=== PATIENT | female | born 1940 | race Caucasian/White ===

== ENCOUNTER 2019-06-25 09:29 | Inpatient (IN) ==
[2019-06-25] MEDS ORDERED: SOLU-MEDROL IV ONE (09:55)
--- NOTE | 2019-06-25 10:20 | Diag Imaging Result Doc PS360 ---
EXAM: CHEST-1 VIEW HISTORY: poss. Sepsis TECHNIQUE: Single view COMPARISON: 06/23/2019 FINDINGS: The lungs are well expanded. The heart is not enlarged. The vessels are not distended. There are no infiltrates. No effusion identified. IMPRESSION: No pneumonia Electronically signed by Lasha Patterson 06/25/2019 10:18 AM
[2019-06-25 10:24] LABS: BASO# 0.01 X1000 (0.0-0.2); BASO% 0.1 % (0.0-0.8); EOS# 0.15 X1000 (0.0-0.7); EOS% 1.5 % (0.0-10.0); HEMATOCRIT 45.1 % (37.0-47.0); HEMOGLOBIN 13.8 g/dL (12.0-16.0); IMM GRAN# 0.03 X1000 (0.0-0.04); IMM GRAN% 0.3 % (0.0-0.5); LYMPH# 1.52 X1000 (1.2-3.4); LYMPH% 14.9 % (20.5-51.1); MCHC 30.6 g/dL (33-37); MCV 94.7 FL (81-99); MONO# 0.92 X1000 (0.11-0.59); MPV 10.5 FL (7.4-10.4); NEUT% 74.2 % (42.2-75.2); PLT 164 X1000 (130-400); RBC 4.76 XMIL (4.2-5.4); RDW 14.1 % (11.5-14.5); WBC 10.23 X1000 (4.8-10.8)
[2019-06-25 10:28] LABS: INR 0.94; PROTIME 12.7 Seconds (11.0-16.0)
[2019-06-25] MEDS ORDERED: DUONEB (A & A) INH ONE ×2 (10:30→11:30)
[2019-06-25 10:48] LABS: ALB/GLOB RATIO 2.1; ALBUMIN 4.2 g/dL (3.5-5.0); CREATININE 1.1 mg/dL (0.5-0.9); POTASSIUM 5.1 mmol/L (3.5-5.1); TOTAL BILIRUBIN 0.77 mg/dL (0.20-1.00); TOTAL PROTEIN 6.2 g/dL (6.3-8.3)
--- NOTE | 2019-06-25 13:41 | PROVIDER DOCUMENTATION ---
This chart was entered by Amina Marquez Scribe, acting as scribe for Carlyle Harden MD. HPI-Respiratory General - General Chief Complaint: SEPSIS ALERT - D Stated Complaint: SOB COUGH COPD Time Seen by Provider: 06/25/19 09:39 Source: patient Allergies/Adverse Reactions: Patient Allergies Allergy/AdvReac Type Severity Reaction Status Date / Time No Known Allergies Allergy Verified 06/25/19 10:34 Home Medications: Home Medication List Medication Instructions Recorded Confirmed Last Taken Type Levothyroxine Sodium 88 mcg PO DAILY 08/20/17 06/25/19 08/20/17 08:00 History Sertraline HCl 50 mg PO DAILY 08/20/17 06/25/19 08/20/17 08:00 History Albuterol Sulfate Inhaler 2 puff INH Q6H PRN PRN #1 inhaler 06/23/19 Unknown Rx [Ventolin Hfa] - History of Present Illness-Resp Nature of Presenting Problem: 78yof presents to ED cc chronic cough w/o mucous production, Fever, SOB and wheezing for 1 wk that is not getting better. Pt reports she was seen in ED 06/23/19 for same symptoms, given breathing treatments, steroids and dx with COPD exacerbation but is no better today. Pt reports coughing lasts for 30 mins at a time and causes her SOB. Pt has hx of HTN, thyroid disease and COPD. Quality of Pain: reports: tightness Severity in ED: reports: moderate, severe Onset/Duration: reports: 1 week ago Timing: reports: still present, getting worse Cough Quality/Degree: reports: severe, dry cough Current Respiratory Medication Therapy: Initiated see nurses note Modifying Factors: worse with: coughing Associated Symptoms: reports: chest pain/soreness, cough, shortness of breath, short of breath, wheezing Similar Symptoms Previously?: Yes Recently seen or treated by another doctor?: Yes (seen in ED 06/23) Review of Systems - Adult - REVIEW OF SYSTEMS - ADULT Constitutional: reports: see HPI, fever. denies: chills, fatique Eyes: reports: no symptoms reported Ears, Nose, Mouth & Throat: reports: no symptoms reported Cardiovascular: reports: see HPI. denies: chest pain, palpitations Respiratory: reports: see HPI, chronic cough, shortness of breath, wheezing Gastrointestinal: reports: see HPI. denies: diarrhea, nausea, vomiting Genitourinary: reports: no symptoms reported Musculoskeletal: reports: no symptoms reported Integumentary: reports: no symptoms reported Neurological: reports: no symptoms reported Psychiatric: reports: no symptoms reported Endocrine: reports: no symptoms reported Hematologic/Lymphatic: reports: no symptoms reported Allergic/Immunologic: reports: no symptoms reported All Other Systems: Reviewed and Negative Past History - Adult - PAST MEDICAL HISTORY-ADULT Review of Records: reports: Old Records Reviewed, Nursing Assessment Review, Medications Reviewed, Social history reviewed & non-contributory. Major Childhood Illnesses: reports: denies history Cardiovascular: reports: denies history Respiratory: reports: denies history Gastrointestinal: reports: denies history Obstetrical/Gynecological: reports: denies history Genitourinary: reports: denies history Musculoskeletal: reports: denies history Neurological: reports: denies history Endocrine/Immune: reports: denies history Other Conditions: reports: denies history - IMMUNIZATION STATUS Childhood Immunizations: See Nurse Assessment Flu Vaccine: See Nurse Assessment - FAMILY HISTORY Family History: reviewed, not pertinent - SOCIAL HISTORY Smoking: denies Physical Exam-General - PHYSICAL EXAM-ADULT Initial Vital Signs Reviewed: Yes - CONSTITUTIONAL General Appearance: alert. negative: anxious, combative - EYES Eyes: PERRL/EOMI, pink conjunctivae. negative: photophobia - HEAD, EARS, NOSE, MOUTH & THROAT HENMT: normocephalic/atraumatic, moist mucous membranes. negative: angioedema - NECK Neck: normal inspection - RESPIRATORY Respiratory: normal breath sounds, wheezing (bilateral, quite a bit). negative: chest non-tender, lungs clear - CARDIOVASCULAR Cardiovascular: normal peripheral pulses, no edema, tachycardia. negative: regular rate, rhythm, bradycardia - GASTROINTESTINAL (ABDOMEN) Abdominal Exam: normal bowel sounds, non tender, soft. negative: rebound - MUSCULOSKELETAL Back Exam: normal inspection, no CVA tenderness, no vertebral tenderness Extremity: normal inspection. negative: deformity - SKIN Integumentary: normal color. negative: diaphoresis, jaundice - PSYCHIATRIC Psych/Mental Status: normal mood/affect, oriented x 3. negative: anxious, disheveled - HEART Score HEART Score: History: Slightly Suspicious HEART Score: ECG: Non-Specific Repolarization Disturbance/LBBB/PM HEART Score: Age: > or = 65 Years HEART Score: Risk Factors for Atherosclerotic Disease: 1 or 2 Risk Factors HEART Score: Troponin: < or = Normal Limit Total HEART Score:: 4 Progress - PLAN OF CARE/RESULTS Progress/Plan/Lab Results: Vital Signs - 8 hr 06/25/19 09:31 06/25/19 10:05 06/25/19 10:35 Temperature 98.5 F Pulse Rate 101 H 100 H 94 H Respiratory Rate 28 H 24 22 Blood Pressure 161/79 169/78 O2 Sat by Pulse Oximetry 96 95 96 06/25/19 11:50 06/25/19 13:01 06/25/19 13:18 Temperature Pulse Rate 71 87 79 Respiratory Rate 23 26 H 24 Blood Pressure 159/74 O2 Sat by Pulse Oximetry 90 L 88 L Laboratory Results - last 24 hr 06/25/19 06/25/19 06/25/19 10:15 10:15 10:15 WBC 10.23 RBC 4.76 Hgb 13.8 Hct 45.1 MCV 94.7 MCH 29.0 MCHC 30.6 L RDW Std Deviation 14.1 Plt Count 164 MPV 10.5 H Immature Gran % (Auto) 0.3 Neut % (Auto) 74.2 Lymph % (Auto) 14.9 L [place] % (Auto) 9.0 Eos % (Auto) 1.5 Baso % (Auto) 0.1 Immature Gran # (Auto) 0.03 Neut # (Auto) 7.60 H Lymph # (Auto) 1.52 [place] # (Auto) 0.92 H Eos # (Auto) 0.15 Baso # (Auto) 0.01 PT 12.7 INR 0.94 PTT (Actin FS) 25.0 Sodium 140 Potassium 5.1 D Chloride 103 Carbon Dioxide 25 Anion Gap 12 BUN 11 Creatinine 1.1 H Estimated GFR/1.73 m2 48 BUN/Creatinine Ratio 10 Glucose 85 Calculated Osmolality 278 Calcium 9.0 Total Bilirubin 0.77 AST 18 ALT 21 Alkaline Phosphatase 93 Creatine Kinase 64 Troponin T Total Protein 6.2 L Albumin 4.2 Globulin 2.0 Albumin/Globulin Ratio 2.1 Plasma Lactate 06/25/19 06/25/19 10:15 10:15 WBC RBC Hgb Hct MCV MCH MCHC RDW Std Deviation Plt Count MPV Immature Gran % (Auto) Neut % (Auto) Lymph % (Auto) [place] % (Auto) Eos % (Auto) Baso % (Auto) Immature Gran # (Auto) Neut # (Auto) Lymph # (Auto) [place] # (Auto) Eos # (Auto) Baso # (Auto) PT INR PTT (Actin FS) Sodium Potassium Chloride Carbon Dioxide Anion Gap BUN Creatinine Estimated GFR/1.73 m2 BUN/Creatinine Ratio Glucose Calculated Osmolality Calcium Total Bilirubin AST ALT Alkaline Phosphatase Creatine Kinase Troponin T < 0.010 Total Protein Albumin Globulin Albumin/Globulin Ratio Plasma Lactate 2.2 Orders Category Date Time Status Cardiac Monitoring DIRECTED Care 06/25/19 09:40 Completed Notify MD of + Sepsis Screen NOW Care 06/25/19 09:40 Completed Notify Physician As Ordered Care 06/25/19 09:40 Completed CHEST-1 VIEW [RAD] Stat Exams 06/25/19 09:40 Completed BLOOD CULTURE [BLDCUL] Stat Lab 06/25/19 11:02 Results CBC WITH DIFF [HEME] Stat Lab 06/25/19 10:15 Completed CK PROFILE [SP CHEM] Stat Lab 06/25/19 10:15 Completed COMPREHENSIVE METABOLIC PANEL [CHEM] Stat Lab 06/25/19 10:15 Completed LACTATE, PLASMA [CHEM] Q3H Lab 06/25/19 10:15 Completed PROTIME WITH INR [COAG] Stat Lab 06/25/19 10:15 Completed PTT [COAG] Stat Lab 06/25/19 10:15 Completed TROPONIN T Stat Lab 06/25/19 10:15 Completed Albuterol 2.5MG/Ipratrop 0.5MG [Duoneb (A & A)] Med 06/25/19 10:30 Discontinued 3 ml INH NOW ONE Albuterol 2.5MG/Ipratrop 0.5MG [Duoneb (A & A)] Med 06/25/19 11:30 Discontinued 3 ml INH NOW ONE Methylprednisolone Sod Succ [Solu-Medrol] Med 06/25/19 09:55 Discontinued 125 mg IV NOW ONE Aerosol Treatments Routine Oth 06/25/19 10:30 Completed Aerosol Treatments Routine Oth 06/25/19 11:30 Completed Aerosol Treatments Stat Oth 06/25/19 10:30 Completed Aerosol Treatments Stat Oth 06/25/19 11:30 Completed Oxygen Device Stat Oth 06/25/19 09:40 Completed Pt sats dropped to 88% on RA in exam room. Result Diagrams: 06/25/19 10:15 06/25/19 10:15 - EKG 1 Time of EKG reading by physician:: 09:40 EKG Read and Signed by:: Carlyle Harden EKG Interpretation (*Must complete 3 of following elements*): Abnormal (possible left atrial enlargement) Rate: 85 Rhythm: NSR QRS: normal ST Wave: non-specific ST changes - XRAY 1 XRAY: Bilateral XRAY Study: Chest Impression: See EMR Report (IMPRESSION: No pneumonia Electronically signed by Lasha Patterson 06/25/2019 10:18 AM) - CONSULTS/PCP/HOSPITALIST Notification #1 *Consult/PCP/Hospitalist*: April VITICULTURIST for Hospitalist Time Discussed: 13:39 Consult Disposition: Will see in ED, Admit Departure - Departure Date of Disposition Decision: 06/25/19 Time of Disposition Decision: 13:39 DIAGNOSIS: COPD with exacerbation Disposition: ADMITTED INPATIENT 09 Certified Medical Emergency: Emergent Condition: Fair Additional Instructions: ED Follow Up Instructions: You have been treated by a care provider in the Emergency Department. These instructions are being provided to you so you can have an understanding of how to care for yourself upon discharge. Upon discharge from the Emergency Department, you are responsible for making arrangements for follow-up care by a physician of your choice. Take all prescribed medications as directed. Return to the Emergency Department immediately for any new or worsening symptoms. You may call the Physician Referral phone number at [phone] to obtain a list of Physicians who are taking new patients. Referrals and Follow-Ups: None,PCP [Primary Care Provider] - - Critical Care Note This patient required my direct & personal management of CC.: No Attestation - Physician/ KARELY Attestation Patient care was provided by Advanced Practice Provider:: No The physician spent face to face time with patient:: Yes Advanced Practice Provider documentation review:: Supervising physician onsite and consulted in the evaluation and care of this patient. The physician did have a face to face encounter with the patient. This chart was documented by the indicated scribe, (Amina Marquez Scribe) and accurately reflects the services I performed and decisions made by me, Carlyle Harden MD, as attested by the provider's signature.
[2019-06-25] MEDS ORDERED: TYLENOL PO PRN (14:34)
[2019-06-25] MEDS ORDERED: ZOFRAN IV PRN (14:34)
[2019-06-25] MEDS ORDERED: DUONEB (A & A) INH PRN (14:36)
--- NOTE | 2019-06-25 15:14 | HISTORY AND PHYSICAL ---
CHIEF COMPLAINT: Shortness of breath. HISTORY OF PRESENT ILLNESS: This is a 78-year-old female with a history of COPD, hypertension, hypothyroid, who presents to the emergency room complaining of shortness of breath, productive cough times about 10 days. She was first treated at an outlying facility about 2 weeks ago. She was given a Z-Oscar and steroids with no improvement in symptoms. In fact, symptoms increased during the day on the . Therefore, she presented to [facility]. She was evaluated, diagnosed with a COPD exacerbation, given Advair inhaler, Medrol Dosepak, Tessalon Perles, and discharged home. She returns today with increasing symptoms once again, having O2 saturations that dropped to 88% on room air, recovering to 94 to 95 percent on nasal cannula despite being given IV steroids and DuoNeb treatments. Therefore, she is being admitted for further evaluation and treatment. PAST MEDICAL HISTORY: 1. Chronic obstructive pulmonary disease. 2. Hypertension. 3. Hypothyroid. PAST SURGICAL HISTORY: 1. Hysterectomy. 2. Thyroidectomy. SOCIAL HISTORY: She denies any alcohol, tobacco, or illicit drug use. ALLERGIES: No known drug allergies. HOME MEDICATIONS: Levothyroxine. REVIEW OF SYSTEMS: Discussed with patient with pertinent positives stated in the HPI. She denied any syncope or dizziness, any nausea, vomiting, diarrhea, constipation, black or bloody vomitus or stools, any chest pain, palpitations. FAMILY HISTORY: Positive for hypertension and COPD in first-degree relatives. PHYSICAL EXAMINATION: VITAL SIGNS: Blood pressure is 150/79 with a heart rate of 76, respirations are 20 to 24, temperature is 98.5 degrees with O2 saturations 94 to 96 percent on 2 L nasal cannula. EYES: Pupils equal, round, react to light. EOMS are intact. Sclerae anicteric. HENT: Head is normocephalic, atraumatic. Mucous membranes are moist. NECK: Supple with trachea midline. CARDIOVASCULAR: Regular rate and rhythm. S1 and S2 appreciated. She has no lower extremity edema. No murmurs. Calves are nontender with peripheral pulses palpable x4 extremities. PULMONARY: Breath sounds are diminished in the bases. She does have rhonchi that do not clear, and inspiratory/expiratory wheezes scattered throughout. She has slight increased work of breathing. Chest rises and falls symmetrically with respiration. Chest wall is nontender to palpation. GASTROINTESTINAL: Abdomen is soft, nontender, nondistended with bowel sounds in all 4 quadrants. NEUROLOGIC: She is alert and oriented x3. SKIN: Warm and dry. LABS: WBC is 10.2 with hemoglobin 13.8, hematocrit 45.1, platelets 164. Sodium 140, potassium 5.1. BUN 11, creatinine 1.1 with a glucose of 85. Blood cultures are pending. X-RAYS: Chest x-ray revealed no pneumonia. Lungs are well expanded. Heart is not enlarged. Vessels are not distended. There are no infiltrates, no effusions. ASSESSMENT: This is a 78-year-old female, who is sitting up in the bed in mild respiratory distress. 1. Chronic obstructive pulmonary disease, acute exacerbation. 2. Acute hypoxemic respiratory failure. 3. Hypertension. 4. Hypothyroid. 5. Deep vein thrombosis prophylaxis. 6. Gastrointestinal prophylaxis. PLAN: The patient will be admitted to the hospital. She will be placed on telemetry continuous supplemental oxygen, DuoNebs q. 4 hours with q. 2 hours p.r.n. steroids to taper. incentive spirometer. identify her home medications and continue these as appropriate Blood cultures have been obtained. Rocephin and azithromycin and any further antibiotics will be culture driven. CBC and CMP in the morning. For DVT prophylaxis, Lovenox. For GI prophylaxis, Prilosec. Plan was discussed with Dr Berkowitz. Further treatments pending hospital course. Dictated by VICKI Dixon for Butch Mims MD cc: VICKI Dixon MD [facility]
[2019-06-25] MEDS: ROCEPHIN 1 GM in NS 50 ML IV SCH (15:17)
--- NOTE | 2019-06-25 15:28 | HISTORY AND PHYSICAL ---
ADDENDUM: Patient seen and examined by me [id number]. All the laboratory, vital signs and images were reviewed. The patient presented to the emergency department with shortness of breath, and she has been having shortness of breath for 2 weeks now. On 06/11/2019, she went to an urgent care and she received some steroids, antibiotics and breathing treatment at home, but she did not get better. Actually, she is getting worse and this is why she came into the emergency department. She was told a couple weeks ago also that she has COPD. She is not a smoker, but she has been around people smoking, including her . She is still coughing, but no phlegm is coming up. She is still wheezing and she is not able to sleep. Chest x-ray did not show any infiltrates, but it does look like having some changes suggestive of COPD with horizontal cessation of the ribs. Laboratory stable. Vital signs showed hypoxia upon admission and elevated blood pressure. She had a partial thyroidectomy done before, but no cancer was found. She is on levothyroxine which we will continue. We will continue with home medications. We have placed this patient on steroids, breathing treatment, oxygen supplementation and antibiotics. We will transfer this patient to the medical floor and monitor the patient closely. Hopefully before discharging this patient, we can get a silk screen printer to see her as an outpatient. I agree with the rest of the nurse practitioner's assessment and plan. cc: Butch Mims MD
[2019-06-25] MEDS: DUONEB (A & A) INH SCH ×3 (15:41→23:38)
[2019-06-25] MEDS: ZITHROMAX PO SCH (16:07)
[2019-06-25] MEDS: NS 1,000 ML IV SCH (16:08)
[2019-06-25] MEDS: TESSALON PO PRN (16:33)
[2019-06-25] MEDS: SOLU-MEDROL IV SCH (20:11)
[2019-06-26] MEDS: DUONEB (A & A) INH SCH ×6 (03:55→23:32)
[2019-06-26] MEDS: SOLU-MEDROL IV SCH ×3 (05:20→20:17)
[2019-06-26] MEDS: NS 1,000 ML IV SCH (05:20)
[2019-06-26 06:01] LABS: HEMATOCRIT 40.3 % (37.0-47.0); HEMOGLOBIN 12.5 g/dL (12.0-16.0); IMM GRAN# 0.02 X1000 (0.0-0.04); IMM GRAN% 0.3 % (0.0-0.5); LYMPH# 0.53 X1000 (1.2-3.4); LYMPH% 8.7 % (20.5-51.1); MCH 29.2 PG (27-31); MCV 94.2 FL (81-99); MONO# 0.26 X1000 (0.11-0.59); MONO% 4.3 % (1.7-9.3); MPV 11.1 FL (7.4-10.4); NEUT# 5.29 X1000 (1.4-6.5); NEUT% 86.7 % (42.2-75.2); PLT 153 X1000 (130-400); RBC 4.28 XMIL (4.2-5.4); RDW 13.7 % (11.5-14.5)
[2019-06-26 06:21] LABS: AGAP 12; ALB/GLOB RATIO 1.5; ALBUMIN 3.4 g/dL (3.5-5.0); ALKALINE PHOSPHATASE 80 U/L (32-104); BUN 19 mg/dL (8-22); CALCIUM 8.4 mg/dL (8.8-10.2); CHLORIDE 105 mmol/L (98-107); COSMO 280; CREATININE 0.9 mg/dL (0.5-0.9); ESTIMATED GFR > 60; GLUCOSE 169 mg/dL (70-104); GOT 14 U/L (10-30); GPT 19 U/L (10-36); POTASSIUM 4.2 mmol/L (3.5-5.1); SODIUM 137 mmol/L (136-145); TCO2 20 mmol/L (25-35); TOTAL BILIRUBIN 0.34 mg/dL (0.20-1.00); TOTAL PROTEIN 5.7 g/dL (6.3-8.3)
[2019-06-26] MEDS: SYNTHROID PO SCH (06:29)
[2019-06-26] MEDS: PRILOSEC PO SCH (06:29)
--- NOTE | 2019-06-26 08:01 | EKG Report ---
Test Performed on : 06/25/2019 09:40:52 AM Test Reason : ED. No order in [place] Blood Pressure : / mmHG Vent. Rate : 085 BPM Atrial Rate : 085 BPM P-R Int : 158 ms QRS Dur : 072 ms QT Int : 374 ms P-R-T Axes : 071 053 064 degrees QTc Int : 445 ms Normal sinus rhythm. Possible Left atrial enlargement Nonspecific ST abnormality Abnormal ECG When compared with ECG of 23-JUN-2019 14:22, (Unconfirmed) No significant change was found Unconfirmed Result
[2019-06-26 08:09] LABS: LARGE PLATELETS OCCASIONAL; LYMPHS 9 % (21-51); MONO 2 % (1-9); SEGS 87 % (42-75)
[2019-06-26] MEDS: LOVENOX SUBQ SCH (09:06)
[2019-06-26] MEDS: ZITHROMAX PO SCH (09:06)
[2019-06-26] MEDS: ZOLOFT PO SCH (09:06)
[2019-06-26] MEDS: TESSALON PO PRN ×2 (10:37→20:15)
--- NOTE | 2019-06-26 13:53 | PROGRESS NOTE ---
DATE: 06/26/2019 SUBJECTIVE: The patient seems to be doing better today. She is still coughing a lot, but her wheezing is better and her breathing is better. I will decrease the dose of the steroids from 60 q eight hours to 40 q eight hours and continue to monitor. Her kidney function is better and she is tolerating p.o., so I will also stop the fluids. I will continue with the antibiotics and breathing treatment as well. OBJECTIVE: Vital Signs: Temperature 98.1 degrees, pulse 106, respiratory rate 20, blood pressure 148/64, oxygen saturation 98 on 2 L of nasal cannula. HEENT: Head normocephalic, no trauma. PERRLA. Neck: Supple. No JVD. No masses. Central trachea. Chest: Decreased breath sounds globally with prolonged expiratory phase and end-expiratory wheezing, mostly at the bases. Abdomen: Soft, nontender, nondistended. No hepatosplenomegaly. Extremities: No edema, no clubbing, no cyanosis. Neurological: The patient is alert and oriented x3. No focal deficits. LABORATORY: WBC 6.1, hemoglobin 12.5, hematocrit 40.3, platelets 153,000. Sodium 137, potassium 4.2, chloride 105, bicarbonate 20, BUN 19, creatinine 0.9, glucose 164, calcium 8.4, albumin 3.4. ASSESSMENT AND PLAN: 1. Acute chronic obstructive pulmonary disease exacerbation. Continue breathing treatment and steroids, which I will decrease the dose and oxygen supplementation. We will continue with same management for now. 2. Acute hypoxemic respiratory failure likely secondary to #1. 3. Likely, also this patient has bronchitis. Continue with antibiotics. 4. Bronchitis, continue with ceftriaxone and azithromycin. 5. Hypertension, stable. Continue with same treatment. 6. Hypothyroidism. Continue with Synthroid. 7. Deep vein thrombosis prophylaxis with Lovenox. 8. Gastrointestinal prophylaxis with omeprazole. DISPOSITION: The patient seems to be doing better. I do believe this patient can be discharged in the next 48 to 72 hours. cc: Butch Mims MD
[2019-06-26] MEDS: ROCEPHIN 1 GM in NS 50 ML IV SCH (14:47)
[2019-06-27] MEDS: DUONEB (A & A) INH SCH ×6 (03:41→23:29)
[2019-06-27 05:56] LABS: AGAP 11; BUN 18 mg/dL (8-22); CALCIUM 8.4 mg/dL (8.8-10.2); CHLORIDE 106 mmol/L (98-107); COSMO 281; CREATININE 0.8 mg/dL (0.5-0.9); ESTIMATED GFR > 60; GLUCOSE 152 mg/dL (70-104); POTASSIUM 4.1 mmol/L (3.5-5.1); SODIUM 138 mmol/L (136-145); TCO2 21 mmol/L (25-35)
[2019-06-27] MEDS: SYNTHROID PO SCH (06:08)
[2019-06-27] MEDS: PRILOSEC PO SCH (06:08)
[2019-06-27] MEDS: SOLU-MEDROL IV SCH ×3 (06:12→21:02)
[2019-06-27] MEDS: ZOLOFT PO SCH (09:02)
[2019-06-27] MEDS: LOVENOX SUBQ SCH (09:02)
[2019-06-27] MEDS: ZITHROMAX PO SCH (09:02)
[2019-06-27] MEDS ORDERED: NORVASC PO ONE (09:52)
--- NOTE | 2019-06-27 11:28 | PROGRESS NOTE ---
DATE: 06/27/2019 SUBJECTIVE: This patient seems to be doing better. She is still coughing a lot and wheezing. She is still short of breath. I will continue with the same dose of the steroids today. Kidney function resolved. I stopped the fluids already. I will continue with antibiotics and breathing treatment. OBJECTIVE: Vital Signs: Temperature 98.5 degrees, pulse 83, respiratory rate 20, blood pressure 177/74, oxygen saturation 99 on 2 L of nasal cannula. HEENT: Head normocephalic, no trauma. PERRLA. Neck: Supple. No JVD. No masses. Central trachea. Chest: Decreased breath sounds globally with prolonged expiratory phase and expiratory wheezing, mostly at the bases. Abdomen: Soft, nontender, nondistended. No hepatosplenomegaly. Extremities: No edema, no clubbing, no cyanosis. Neurological: The patient is alert, she is oriented x3. No focal deficits. LABORATORY DATA: Sodium 138, potassium 4.1, chloride 106, bicarbonate 21, BUN 18, creatinine 0.8, glucose 152, calcium 8.4. ASSESSMENT AND PLAN: 1. Acute chronic obstructive pulmonary disease exacerbation. Continue breathing treatments, steroids, antibiotics and oxygen supplementation. 2. Acute hypoxemic respiratory failure, likely secondary to #1. 3. Bronchitis. Continue with antibiotics. 4. Hypertension, stable. Continue with same treatment. 5. Hypothyroidism. Continue with Synthroid. 6. Deep vein thrombosis prophylaxis with Lovenox. 7. Gastrointestinal prophylaxis with omeprazole. 8. Disposition. The patient seems to be doing better. I do believe this patient can be discharged in the next 24 to 48 hours. We will continue with the same management. I will continue with the same dose of steroids. cc: Butch Mims MD
[2019-06-27] MEDS: ROCEPHIN 1 GM in NS 50 ML IV SCH (14:17)
[2019-06-27] MEDS: TESSALON PO PRN (14:19)
[2019-06-28] MEDS: DUONEB (A & A) INH SCH ×6 (03:26→23:21)
[2019-06-28] MEDS: SOLU-MEDROL IV SCH ×3 (05:54→20:50)
[2019-06-28] MEDS: PRILOSEC PO SCH (06:03)
[2019-06-28] MEDS: SYNTHROID PO SCH (06:03)
[2019-06-28] MEDS: ZOLOFT PO SCH (08:43)
[2019-06-28] MEDS: LOVENOX SUBQ SCH (08:44)
[2019-06-28] MEDS: ZITHROMAX PO SCH (08:44)
--- NOTE | 2019-06-28 11:02 | PROGRESS NOTE ---
DATE: 06/28/2019 SUBJECTIVE: The patient seems to be feeling better, but she is still wheezing and coughing. I will add Symbicort to her medications. I will continue with steroids. Kidney function resolved. I stopped the fluids already. Continue with antibiotics, breathing treatment, oxygen supplementation. OBJECTIVE: Vital Signs: Temperature 98.1 degrees, pulse 78, respiratory rate 20, blood pressure 172/67, oxygen saturation 98 on 2 L of nasal cannula. HEENT: Head normocephalic, no trauma. PERRLA. Neck: Supple. No JVD. No masses. Central trachea. Chest: Decreased breath sounds globally with prolonged expiratory phase and expiratory wheezing mostly at the bases. Abdomen: Soft, nontender, nondistended. No hepatosplenomegaly. Extremities: No edema, no clubbing, no cyanosis. Neurological: The patient is alert she is oriented x3. No focal deficits. LABORATORY: No lab work done today, laboratory from yesterday stable. ASSESSMENT AND PLAN: 1. Acute chronic obstructive pulmonary disease exacerbation. Continue breathing treatments, steroids, antibiotics, oxygen supplementation, I will add Symbicort to her medications. 2. Acute hypoxemic respiratory failure likely secondary to #1. 3. Bronchitis continue with antibiotics. 4. Hypertension stable continue with same treatment. 5. Hypothyroidism continue with Synthroid. 6. Deep vein thrombosis prophylaxis with Lovenox. 7. Gastrointestinal prophylaxis with omeprazole. DISPOSITION: The patient seems to be doing better. I do believe this patient can be discharged in the next 24 to 48 hours, but she would like to be evaluated by Pulmonary Department and she has requested to be evaluated by Dr. Doyle which will be on board tomorrow. cc: Butch Mims MD
[2019-06-28] MEDS: SYMBICORT 80/4.5 MICROGM INHALER INH SCH ×2 (11:40→19:37)
[2019-06-28] MEDS: ROCEPHIN 1 GM in NS 50 ML IV SCH (15:07)
[2019-06-28] MEDS: TESSALON PO PRN (18:49)
[2019-06-28] MEDS: ROBITUSSIN-AC PO PRN (19:26)
[2019-06-29] MEDS: DUONEB (A & A) INH SCH ×6 (03:40→23:20)
[2019-06-29] MEDS: SOLU-MEDROL IV SCH ×3 (05:28→20:34)
[2019-06-29] MEDS: SYNTHROID PO SCH (06:10)
[2019-06-29] MEDS: PRILOSEC PO SCH (06:10)
[2019-06-29 06:29] LABS: BASO# 0.01 X1000 (0.0-0.2); BASO% 0.1 % (0.0-0.8); EOS# 0.03 X1000 (0.0-0.7); EOS% 0.3 % (0.0-10.0); HEMOGLOBIN 13.2 g/dL (12.0-16.0); IMM GRAN# 0.19 X1000 (0.0-0.04); IMM GRAN% 1.9 % (0.0-0.5); LYMPH# 0.67 X1000 (1.2-3.4); LYMPH% 6.7 % (20.5-51.1); MCH 29.3 PG (27-31); MCHC 31.4 g/dL (33-37); MCV 93.3 FL (81-99); MONO# 0.59 X1000 (0.11-0.59); MONO% 5.9 % (1.7-9.3); MPV 11.2 FL (7.4-10.4); NEUT# 8.49 X1000 (1.4-6.5); NEUT% 85.1 % (42.2-75.2); PLT 186 X1000 (130-400); RDW 13.6 % (11.5-14.5); WBC 9.98 X1000 (4.8-10.8)
[2019-06-29 06:35] LABS: POTASSIUM 4.5 mmol/L (3.5-5.1)
--- NOTE | 2019-06-29 07:28 | CONSULTATION ---
DATE OF CONSULTATION: 06/28/2019 CHIEF COMPLAINT: Cough and shortness of breath. HISTORY OF PRESENT ILLNESS: This is a 78-year-old female with a history of COPD, hypertension and hypothyroidism. She has a complaint of cough that started approximately 10 days ago. She received treatment with antibiotics and steroids without relief. She also has the complaint of shortness of breath in which her O2 saturation has dropped to 88% on room air. Recent chest x-ray was negative for pneumonia. PAST MEDICAL HISTORY: 1. COPD. 2. Hypertension. 3. Hypothyroidism. PAST SURGICAL HISTORY: Hysterectomy and thyroidectomy. SOCIAL HISTORY: Denies any alcohol, tobacco or illicit drug use. ALLERGIES: No known drug allergies. HOME MEDICATIONS: Levothyroxine. REVIEW OF SYSTEMS: A 10-point review of systems was obtained, and the pertinent is listed in the HPI, otherwise noncontributory. FAMILY HISTORY: Positive for hypertension and COPD in first degree relatives. PHYSICAL EXAMINATION: Vital signs: Blood pressure is 150/79, heart rate 75, respirations 20, temperature 98.5, O2 saturation ranging from 94% to 96% with O2 at 2 L per nasal cannula. General: This is a 78-year-old female resting quietly in bed, in no acute distress at the present time. HEENT: Head is normocephalic and atraumatic. Mucous membranes are moist. Neck: Supple. Trachea midline. Cardiovascular: Regular rate and rhythm. S1 and S2 appreciated. No lower extremity edema, clubbing or cyanosis. Respiratory: Breath sounds diminished in bases with some rhonchi and expiratory wheezes scattered throughout, nonlabored. GI: Abdomen soft, nontender and nondistended. Positive bowel sounds in all 4 quadrants. Skin is warm and dry. Neurologic: Alert and oriented x3. DIAGNOSTIC DATA: White blood cells 10.2, hemoglobin 13.8, hematocrit 45.1, platelets 164. Sodium 140, potassium 5.1, BUN is 11, creatinine 1.1, glucose 85. X-rays as mentioned in HPI. ASSESSMENT AND PLAN: 1. Chronic obstructive pulmonary disease, acute exacerbation. Continue antibiotics, bronchodilators, steroids and incentive spirometry. 2. Acute hypoxemic respiratory failure. Continue supplemental O2. We will continue to monitor with ABGs. 3. Hypertension. We will monitor. 4. Hypothyroidism. Continue levothyroxine. 5. Continue DVT prophylaxis. 6. Continue GI prophylaxis. Thank you for the courtesy of this consult. Dictated by VICKI Balbuena for Jl Hernandez MD cc: VICKI Balbuena MD
[2019-06-29] MEDS: SYMBICORT 80/4.5 MICROGM INHALER INH SCH ×2 (07:47→19:47)
[2019-06-29] MEDS: ZITHROMAX PO SCH (08:38)
[2019-06-29] MEDS: LOVENOX SUBQ SCH (08:38)
[2019-06-29] MEDS: ZOLOFT PO SCH (08:38)
--- NOTE | 2019-06-29 13:01 | PROGRESS NOTE ---
DATE: 06/29/2019 SUBJECTIVE: The patient seems to be feeling better. She is still having wheezing and coughing. She has been evaluated by Pulmonary Department. I will follow their recommendations. I do believe this patient can be discharged in the next 24 to 48 hours with possible oxygen. I will request a home O2 evaluation for tomorrow morning. OBJECTIVE: Vital Signs: Temperature 98.0 degrees, pulse 98, respiratory rate 15, blood pressure 152/62, oxygen saturation 92 on 3 L of nasal cannula. HEENT: Head normocephalic, no trauma. PERRLA. Neck: Supple. No JVD. No masses. Central trachea. Chest: Decreased breath sounds globally with prolonged expiratory phase and end-expiratory wheezing, better compared with yesterday. Abdomen: Soft, nontender, nondistended. No hepatosplenomegaly. Extremities: No edema, no clubbing, no cyanosis. Neurological examination: The patient is alert. She is oriented x3. No focal deficits. LABORATORY: WBC 9.9, hemoglobin 13.2, hematocrit 42, platelets 186. Sodium 141, potassium 4.5, chloride 104, bicarbonate 26. BUN 16, creatinine 1, glucose 127, calcium 9. ASSESSMENT AND PLAN: 1. Chronic obstructive pulmonary disease exacerbation. Continue breathing treatment, steroids, antibiotics, oxygen supplementation and Symbicort. She is getting better. 2. Acute hypoxemic respiratory failure likely secondary to #1. 3. Bronchitis. Continue antibiotics. 4. Hypertension, stable. Continue same treatment. 5. Hypothyroidism. Continue with Synthroid. 6. Deep vein thrombosis prophylaxis with Lovenox. 7. Gastrointestinal prophylaxis with omeprazole. The patient has been seen and evaluated by Pulmonary Department. Upon discharge, this patient will be followed by Dr. Doyle, even though at this moment she is being seen by Dr. Hernandez. I do believe this patient can be discharged in the next 24 to 48 hours depending on the Pulmonary Department recommendations. cc: Butch Mims MD
[2019-06-29] MEDS: ROCEPHIN 1 GM in NS 50 ML IV SCH (16:24)
[2019-06-30] MEDS: DUONEB (A & A) INH SCH ×4 (03:17→15:54)
[2019-06-30] MEDS: ROBITUSSIN-AC PO PRN (05:33)
[2019-06-30] MEDS: SOLU-MEDROL IV SCH ×2 (05:34→14:18)
[2019-06-30] MEDS: SYNTHROID PO SCH ×2 (05:34→06:03)
[2019-06-30] MEDS: PRILOSEC PO SCH ×2 (05:34→06:03)
[2019-06-30 06:03] LABS: AGAP 11; BUN 18 mg/dL (8-22); CALCIUM 8.2 mg/dL (8.8-10.2); CHLORIDE 102 mmol/L (98-107); COSMO 280; CREATININE 0.8 mg/dL (0.5-0.9); ESTIMATED GFR > 60; GLUCOSE 136 mg/dL (70-104); POTASSIUM 4.4 mmol/L (3.5-5.1); SODIUM 138 mmol/L (136-145); TCO2 25 mmol/L (25-35)
[2019-06-30] MEDS: ZITHROMAX PO SCH (08:05)
[2019-06-30] MEDS: LOVENOX SUBQ SCH (08:05)
[2019-06-30] MEDS: ZOLOFT PO SCH (08:05)
[2019-06-30] MEDS: SYMBICORT 80/4.5 MICROGM INHALER INH SCH (08:18)
[2019-06-30 13:32] VITALS: BP 133/63
[2019-06-30] MEDS: ROCEPHIN 1 GM in NS 50 ML IV SCH (14:19)
--- NOTE | 2019-07-01 18:35 | DISCHARGE SUMMARY ---
ADMISSION DATE: 06/25/2019 DISCHARGE DATE: 06/30/2019 DISCHARGE DIAGNOSES: 1. Chronic obstructive pulmonary disease exacerbation, resolved. 2. Acute respiratory failure, resolved. 3. Hypertension. 4. Hypothyroidism. CONSULTATIONS: Dr. Hernandez from Pulmonary. PROCEDURES: Chest x-ray done on admission showed no pneumonia. HOSPITAL COURSE: This is a 78-year-old female, with history of COPD, hypertension, and hypothyroidism, who presented to the emergency department complaining of shortness of breath and productive cough for about 10 days. She was treated as an outpatient 2 weeks ago, but apparently she failed outpatient treatment. She was given Z-Oscar and steroids with no improvement, so she was admitted to the hospital with IV antibiotics, DuoNeb, and IV steroids. She was progressively getting better. At the time of discharge, patient is feeling fine, walking around, and not requiring any oxygen supplementation, so she is going to be discharged in stable condition. DISCHARGE PHYSICAL EXAMINATION: Vital signs: Temperature 97.6 degrees, heart rate 84, respiratory rate 17, blood pressure 133/63, O2 saturation 94% on room air. General: This is a 78- year-old female lying in bed in no acute distress. Cardiovascular: S1, S2 heard. No murmurs, gallops, or rubs. Respiratory: Decreased breath sounds globally, but no wheezing noted in the physical examination. Patient is not using any accessory muscles or having work of breathing. Abdomen: Soft, nontender to palpation. Bowel sounds present. No organomegaly. Extremities: No clubbing, cyanosis, or edema. Peripheral pulses present in both legs. Neurological: The patient is alert and oriented x3. Moves 4 extremities. DISCHARGE DISPOSITION: Home to self-care. FOLLOWUP: Dr. Hernandez as already scheduled. LIST OF MEDICATIONS: 1. Symbicort 80/4.5 two puffs inhalation twice daily. 2. Levofloxacin 750 mg 1 tablet p.o. daily for 7 days. 3. Medrol Dosepak as scheduled. 4. Levothyroxine 88 mcg 1 tablet p.o. daily. 5. Sertraline 50 mg 1 tablet p.o. daily. 6. Albuterol as needed. cc: Solitario Pena MD
== END 2019-06-30 17:10 | disposition home or self-care (01) | DRG 190 ==
LOC: ED 09:29 → 1N 14:50 → SUATTDRO 14:50
PROVIDERS: ATTEND Internal Medicine